=== PATIENT | female | born 1980 | race Caucasian/White ===

== ENCOUNTER 2021-03-31 21:02 | Emergency (ER) | payer OTHER ==
[2021-03-31] MEDS ORDERED: Ketorolac 60 MG/2 ML SDV IM ONE (21:34)
[2021-03-31] MEDS ORDERED: Orphenadrine 100 MG Tab.ER PO STA (21:34)
[2021-03-31] MEDS ORDERED: HYDROmorphone 0.5 MG/0.5 ML Syringe IM ONE (23:07)
--- NOTE | 2021-03-31 23:07 | EDM.PDOC ---
ED HPI GENERAL MEDICAL PROBLEM - General Chief Complaint: Back Pain or Injury Stated Complaint: BACK PAIN Time Seen by Provider: 03/31/21 21:26 Source of Information: Reports: Patient History Limitations: Reports: No Limitations - History of Present Illness INITIAL COMMENTS - FREE TEXT/NARRATIVE: 40-year-old female presents to the emergency department with low back pain. She states that earlier this evening she was sitting at the kitchen table in a chair and bent over to that her cat. She states that when she sat back up she felt a popping in her lower back and then developed severe back spasms. She does state that approximately 15 years ago she did have a fusion to her spine however she has done well since then. She states she did take some Tylenol about 3 hours be fore arrival to the emergency department and this did not seem to help. back Pain Score (Numeric/FACES): 8 - Related Data Allergies Allergy/AdvReac Type Severity Reaction Status Date / Time No Known Allergies Allergy Verified 03/31/21 21:18 Home Meds: Home Meds Orphenadrine [Norflex] 100 mg PO BEDTIME PRN #5 tab 03/31/21 [Rx] Past Medical History - Past Health History Medical/Surgical History: Denies Medical/Surgical History Social & Family History - Tobacco Use Tobacco Use Status *Q: Current Every Day Tobacco User Years of Tobacco use: 14 Packs/Tins Daily: 0 Used Tobacco, but Quit: Yes Month/Year Tobacco Last Used: 2018 Tobacco Use Comment: vaping for the last 3 years - Recreational Drug Use Recreational Drug Use: No ED ROS GENERAL - Review of Systems Review Of Systems: Comprehensive ROS is negative, except as noted in HPI. ED EXAM,LOWER BACK PAIN/INJURY - Physical Exam Exam: See Below Exam Limited By: No Limitations General Appearance: Alert, WD/WN, Mild Distress Ears: Normal External Exam, Hearing Grossly Normal Nose: Normal Inspection Throat/Mouth: Normal Inspection, Normal Lips, Normal Voice, No Airway Compromise Head: Atraumatic Neck: Normal Inspection, Supple, Non-Tender Respiratory/Chest: No Respiratory Distress, No Accessory Muscle Use Cardiovascular: Normal Peripheral Pulses, Regular Rate, Rhythm GI/Abdominal: No Distention (Female) Exam: Deferred Rectal (Female) Exam: Deferred Back Exam: Paraspinal Tenderness (lumbar spine), Vertebral Tenderness (lumbar spine) Extremities: Normal Inspection, Normal Range of Motion, Non-Tender, No Pedal Edema, Normal Capillary Refill Neurological: Alert, Normal Mood/Affect, Normal Gait, Oriented x 3 Psychiatric: Normal Affect, Normal Mood Skin Exam: Warm, Dry, Intact, Normal Color, No Rash Lymphatic: No Adenopathy Course - Vital Signs Text/Narrative:: Upon assessment, the patient states she feels like her lower back is spasming. She is able to sit at the bedside with assistance. She does have paraspinal tenderness noted to the lumbar spine primarily on the right side radiating into her right hip. She states she also does have a slight amount of tenderness to the left paraspinal area. She is able to stand and ambulate however she states that it does cause her some discomfort. She denies any numbness or tingling down the back of either of her legs. CMS is positive to her lower extremities. I have ordered an x-ray of the lumbar spine. I have also ordered for the patient to have a Norflex 100 mg tab and Toradol 60 mg IM. Last Recorded V/S: Last Vital Signs Temp 97.4 F 03/31/21 21:16 Pulse 77 03/31/21 21:16 Resp 18 03/31/21 21:16 BP 120/80 03/31/21 21:16 Pulse Ox 95 03/31/21 21:16 - Orders/Labs/Meds Orders: Active Orders 24 hr Category Date Time Status Lumbar Spine 2 or 3V [CR] Stat Exams 03/31/21 21:33 Taken Meds: Medications Discontinued Medications Generic Name Dose Route Start Last Admin Trade Name Alcidesq PRN Reason Stop Dose Admin Ketorolac Tromethamine 60 mg 03/31/21 21:34 03/31/21 21:51 Ketorolac 60 Mg/2 Ml Sdv IM 03/31/21 21:35 60 mg ONETIME ONE Administration Orphenadrine Citrate 100 mg 03/31/21 21:34 03/31/21 21:51 Orphenadrine 100 Mg Tab.Er PO 03/31/21 21:35 100 mg NOW STA Administration - Re-Assessments/Exams Free Text/Narrative Re-Assessment/Exam: 03/31/21 23:03 X-rays of lumbar spine were reviewed by myself and Dr. Tsang and no acute process is appreciated. Official radiologist report is pending. Patient was reassessed and she states her pain is still at a 6 out of 10 however it does feel slightly better. I have ordered for the patient to receive 0.5 mg of Dilaudid IM and then she will be discharged home. I will send a prescription for Norflex 5 tabs to her pharmacy. She has been instructed to alternate Tylenol 650 mg with ibuprofen 600 mg every 4 hours for the next 48 hours. Departure - Departure Time of Disposition: 23:05 Disposition: Home, Self-Care 01 Condition: Good Clinical Impression: Low back pain Qualifiers: Chronicity: acute Back pain laterality: bilateral Sciatica presence: without sciatica Qualified Code(s): M54.5 - Low back pain - Discharge Information Prescriptions: Orphenadrine [Norflex] 100 mg PO BEDTIME PRN #5 tab PRN Reason: Spasms Referrals: Gisel Sloan [employer] [Primary Care Provider] - Forms: ED Department Discharge, ED Return to Work/School Form Additional Instructions: You were seen in the emergency department with complaints of low back pain and hearing a pop after you sat up from the kitchen table. X-rays were completed and this did not show any acute injury of your spine. You did receive a muscle relaxer and anti-inflammatory medication while in the emergency department. You also received a dose of narcotic pain medication. Recommend that for the next 48 hours you alternate Tylenol 650 mg with ibuprofen 600 mg every 4 hours [id number]. You likely will be significantly more sore tomorrow and Sunday and then you should notice that things are getting better. Do not use heat. Ice the low back 30 minutes at a time every 3 hours while awake. If you are not feeling better in about a week follow-up with your primary care provider for further evaluation. Sepsis Event Note (ED) - Evaluation Sepsis Screening Result: No Definite Risk - Focused Exam Vital Signs: Vital Signs Temp Pulse Resp BP Pulse Ox 03/31/21 21:16 97.4 F 77 18 120/80 95 - My Orders Last 24 Hours: My Active Orders 03/31/21 21:33 Lumbar Spine 2 or 3V [CR] Stat - Assessment/Plan Last 24 Hours: My Active Orders 03/31/21 21:33 Lumbar Spine 2 or 3V [CR] Stat
--- NOTE | 2021-04-01 06:03 | CR ---
Lumbar spine: AP, lateral and coned-down lateral view centered to the lumbosacral junction were obtained. Comparison: No prior lumbar spine imaging is available. Moderate disc space narrowing is noted at L4-5. Severe disc space narrowing is noted at L5-S1. Mild posterior disc space narrowing is noted at L2-3 and L3-4. Mild diffuse disc space narrowing is noted at T11-12, T12-L1 and L1-2. Slight posterior osteophyte are s noted at L1-2. Mild scattered anterior osteophytes are seen. Pedicles are intact. Visualized transverse and spinous processes are intact. Sacroiliac joints show nothing acute. Impression: 1. Diffuse disc space narrowing and endplate osteophytes as noted above. Diagnostic code #3
== END 2021-03-31 23:18 | disposition home or self-care (01) ==
LOC: JD.ED 21:02
DX: M54.5 Low back pain (principal); Z72.0 Tobacco use
CPT/HCPCS: 72100; 96372; 99283; A9270; J1170; J1885